=== PATIENT | male | born 1960 | race Caucasian/White ===

== ENCOUNTER 2019-06-01 09:56 | Emergency (ER) | payer OTHER ==
[~2019-06-01] VITALS: Ht 180.3 cm; Wt 98.5 kg
[2019-06-01 09:59] VITALS: BP 110/78
--- NOTE | 2019-06-01 10:38 | NUR ---
Pt to room from lobby.
--- NOTE | 2019-06-01 10:45 | NUR ---
THIS IS A 58 YEAR OLD MALE WHO C/O OF TOOTH PAIN
--- NOTE | 2019-06-01 10:50 | NUR ---
REPORT RECEIVED FROM KEV GIRON. ASSUMED CARE
== END 2019-06-01 11:24 | disposition home or self-care (01) ==
LOC: ED 10:59
DX: K02.9 Dental caries, unspecified (principal)
CPT/HCPCS: 99283